=== PATIENT | female | born 1980 | race American Indian/Alaskan Native ===

== ENCOUNTER 2017-03-23 12:45 | Emergency (ER) | payer SELFPAY ==
[2017-03-23 12:55] VITALS: BP 123/80
[2017-03-23] MEDS ORDERED: MARCAINE 0.5% INFILTRATI ONE (13:05)
[2017-03-23] MEDS ORDERED: NACL 0.9% IR ONE ×2 (13:06→13:10)
[2017-03-23] MEDS ORDERED: MOTRIN PO ONE (13:06)
[2017-03-23] MEDS ORDERED: BOOSTRIX IM ONE (13:55)
--- NOTE | 2017-03-23 22:23 | Emergency Department Report ---
Entered by TAMERA MORRELL, acting as scribe for MANDY CAMPOS NP. - General Chief complaint: Skin/Abscess/Foreign Body Stated complaint: LUMP UNDER ARM Time Seen by Provider: 03/23/17 12:56 Source: patient Mode of arrival: Ambulatory Limitations: No Limitations - History of Present Illness Initial comments: This is a 36 y/o female that is non-toxic, non-ill appearing, and in no acute distress with no significant PMHx with c/o a gradually worsening right axillary abscess that began 1 week ago. Patient states the abscess began as a small bump the "size of a tic-tac" one year ago, and she was seen by her PCP who diagnosed it as folliculitis. Patient reports associated sharp, burning, 7/10 pain, but she denies fever, chills, pus, drainage, CP. SOB, stiff neck, headache, nausea, and vomiting. Aggravated with movement and alleviated with nothing. Not UTD with tetanus. NKDA. complaint: abscess/boil Onset/Timin -: week(s) Tetanus Up to Date: no Location: RUE (right axillary) Severity: moderate Severity scale (0 -10): 7 Quality: burning, stabbing Consistency: constant Improves with: none Worsens with: movement Context: other (Hx of folliculitis) Associated symptoms: denies other symptoms Treatments Prior to Arrival: none - Related Data Previous Rx's Medication Instructions Recorded Last Taken Type Cephalexin [Keflex] 500 mg PO Q8HR 5 Days 03/23/17 Unknown Rx traMADol [Ultram] 50 mg PO Q6HR PRN #8 tablet 03/23/17 Unknown Rx Allergies Allergy/AdvReac Type Severity Reaction Status Date / Time No Known Allergies Allergy Unverified 03/23/17 12:51 Abscess Boil HPI - HPI Chief Complaint: Skin/Abscess/Foreign Body Stated Complaint: LUMP UNDER ARM Time Seen by Provider: 03/23/17 12:56 Duration: 1 Week Location: Upper Extremity (right axillary) Severity: Moderate (7/10) History: Yes Pain (right axillary), No Fever, No Purulent Drainage, No Numbness , No Foreign Body, No Previous History, No Insect Bite Home Medications: Previous Rx's Medication Instructions Recorded Last Taken Type Cephalexin [Keflex] 500 mg PO Q8HR 5 Days 03/23/17 Unknown Rx traMADol [Ultram] 50 mg PO Q6HR PRN #8 tablet 03/23/17 Unknown Rx Allergies/Adverse Reactions: Allergies Allergy/AdvReac Type Severity Reaction Status Date / Time No Known Allergies Allergy Unverified 03/23/17 12:51 ED Review of Systems Comment: All other systems reviewed and negative Constitutional: denies: chills, fever, weakness Eyes: denies: eye pain, eye discharge, vision change ENT: denies: ear pain, throat pain Respiratory: denies: cough, orthopnea, shortness of breath, SOB with exertion, SOB at rest, stridor, wheezing Cardiovascular: denies: chest pain, palpitations, dyspnea on exertion, orthopnea , edema, syncope, paroxysmal nocturnal dyspnea Endocrine: no symptoms reported Gastrointestinal: denies: abdominal pain, nausea, vomiting Genitourinary: denies: urgency, dysuria, discharge Musculoskeletal: denies: back pain, joint swelling, arthralgia, myalgia Skin: other (right axillary abscess). denies: rash, lesions Neurological: denies: headache, weakness, numbness, paresthesias Psychiatric: denies: anxiety, depression Hematological/Lymphatic: denies: easy bleeding, easy bruising ED Past Medical Hx - Past Medical History Previous Medical History?: No - Surgical History Additional Surgical History: X 2 - Social History Smoking Status: Never Smoker Substance Use Type: Alcohol, Marijuana - Medications Home Medications: Home Medications Medication Instructions Recorded Confirmed Last Taken Type Cephalexin [Keflex] 500 mg PO Q8HR 5 Days 03/23/17 Unknown Rx traMADol [Ultram] 50 mg PO Q6HR PRN #8 tablet 03/23/17 Unknown Rx ED Physical Exam - General Limitations: No Limitations General appearance: alert, in no apparent distress - Head Head exam: Present: atraumatic, normocephalic - Eye Eye exam: Present: normal appearance, PERRL, EOMI Pupils: Present: normal accommodation - ENT ENT exam: Present: normal exam, normal orophraynx, mucous membranes moist, TM's normal bilaterally, normal external ear exam - Neck Neck exam: Present: normal inspection, full ROM. Absent: tenderness, meningismus, lymphadenopathy - Respiratory Respiratory exam: Present: normal lung sounds bilaterally. Absent: respiratory distress, wheezes, rales, rhonchi, stridor - Cardiovascular Cardiovascular Exam: Present: regular rate, normal rhythm, normal heart sounds. Absent: systolic murmur, diastolic murmur, rubs, gallop - GI/Abdominal GI/Abdominal exam: Present: soft, normal bowel sounds. Absent: distended, tenderness, guarding, rebound, rigid, diminished bowel sounds - Extremities Exam Extremities exam: Present: normal inspection, full ROM, normal capillary refill. Absent: tenderness, pedal edema, joint swelling, calf tenderness - Back Exam Back exam: Present: normal inspection, full ROM. Absent: tenderness, CVA tenderness (R), CVA tenderness (L), muscle spasm, paraspinal tenderness, vertebral tenderness - Neurological Exam Neurological exam: Present: alert, oriented X3, CN II-XII intact, normal gait, reflexes normal. Absent: motor sensory deficit - Psychiatric Psychiatric exam: Present: normal affect, normal mood - Skin Skin exam: Present: warm, dry, intact. Absent: rash - Expanded Skin Exam Expanded Type of lesion: Present: abscess (3 cm boil present to right axillary that is tender to touch with no pus or drainage. Positive fluctance.) ED Course Vital Signs 03/23/17 12:53 Temperature 98.1 F Pulse Rate 74 Respiratory 17 Rate Blood Pressure 123/80 O2 Sat by Pulse 99 Oximetry - Reevaluation(s) Reevaluation #1: 03/23/17 14:00 Patient is sitting down after I/D comfortably. no signs of distress noted./ - I & D Right Breast Type of Procedure: Complex Site: Axilla Blade Size: 11 I & D Procedure: betadine prep, sterile drapes applied, sterile dressing applied Progress: Under sterile procedure, I used Betadine to cleanse the area. I then used 4 x 4 to try and clean the area. I used 25-gauge 5/8 hypo-to inject 0.5% Marcaine with total volume of 6 mL. I then used Betadine again cleansed area. I then used an 11 blade to make a decision of 2 cm to the site. About 1 mL of purulent drainage noted. I then used a hemostat to break down the abscess. I used 0.9% saline to flush the area with a total cc of 20. I then used one fourth iodoform packing. A sterile 4 x 4 with tape has in place as dressing. Patient's are well with no acute signs of distress or complications noted. ED Medical Decision Making - Medical Decision Making Ed course: This is a 36-year-old female that presents with right axilla abscess 1- after my physical exam, pt recevied ibuprofen, tetanus. 2-incision drainage has been performed and a one fourth aforementioned place. Patient was instructed to keep the wound clean and dry for 48 hours. Patient was also instructed to return if 48 hours for packing removal and reassessment of the wound. 3- patient received Ultram at discharge and was struck and not operate heavy machinery while taking altered due to sedation/drowsiness. 4- patient also received Keflex at discharge. 5- patient was instructed to follow-up with her primary care doctor in 3-5 days or symptoms worsen such as fever, chills, joint pain, joint stiffness, joint swelling, stiff neck, headache, shortness of breath, chest pain, increased swelling with pus drainage return back to emergency room as was possible. 6- at time time of discharge, the patient does not seem toxic or ill in appearance. No acute signs of distress noted. Patient agrees to discharge treatment plan of care. No further questions noted by the patient. ED Disposition Clinical Impression: Abscess Disposition: DC-01 TO HOME OR SELFCARE Is pt being admited?: No Does the pt Need Aspirin: No Condition: Stable Instructions: Abscess (ED), Acute Wound Care (ED), Abscess Incision and Drainage (ED), Incision and Drainage (ED), Cephalexin (By mouth), Tramadol (By mouth) Additional Instructions: Return back to ER in 48 hours for packing removal and reassessment of your wound. follow-up with your primary care doctor in 3-5 days or symptoms worsen such as fever, chills, joint pain, joint stiffness, joint swelling, stiff neck, headache , shortness of breath, chest pain, increased swelling with pus drainage return back to emergency room as was possible. Take full course of antibodies as prescribed. Take Ultram as prescribed. Do not operate heavy machinery when taken Ultram due to sedation/drowsiness. Prescriptions: Cephalexin [Keflex] 500 mg PO Q8HR 5 Days traMADol [Ultram] 50 mg PO Q6HR PRN #8 tablet PRN Reason: Pain Referrals: KRYS MARTI MD [Primary Care Provider] - 3-5 Days CATRINA SIERRA JR, MD [Staff Physician] - 3-5 Days [facility] [Outside] - 3-5 Days [facility] [Outside] - 3-5 Days Forms: Work/School Release Form(ED) This documentation as recorded by the PORSCHE smith JASMINE,accurately reflects the service I personally performed and the decisions made by me,MANDY CAMPOS, [employer]EEPING [employer]ESS OPERATOR.
== END 2017-03-23 14:26 | disposition home or self-care (01) ==
LOC: ED 12:45
DX: L02.411 Cutaneous abscess of right axilla (principal); F12.10 Cannabis abuse, uncomplicated
CPT/HCPCS: 90471; 90715

== ENCOUNTER 2017-03-25 12:55 | Emergency (ER) | payer SELFPAY ==
[2017-03-25 13:27] VITALS: BP 130/87
--- NOTE | 2017-03-25 14:04 | Emergency Department Report ---
Suture/Staple Removal - HPI Chief Complaint: Laceration/Recheck/Suture Stated Complaint: WOUND CHECK Time Seen by Provider: 03/25/17 13:41 When Sutures or Vin Placed: I and D two days ago Wound Location: R axilla ED Review of Systems ROS: Stated complaint: WOUND CHECK Other details as noted in HPI Comment: All other systems reviewed and negative Constitutional: denies: chills, fever Gastrointestinal: other (tolerating antibiotics). denies: nausea, vomiting Musculoskeletal: other (pt states pain decreased ) Skin: other (foul smelling drainage from packing ). denies: change in color ED Past Medical Hx - Past Medical History Previous Medical History?: No - Surgical History Past Surgical History?: Yes Additional Surgical History: X 2 - Social History Smoking Status: Never Smoker Substance Use Type: Alcohol, Marijuana - Medications Home Medications: Home Medications Medication Instructions Recorded Confirmed Last Taken Type Cephalexin [Keflex] 500 mg PO Q8HR 5 Days 03/23/17 Unknown Rx traMADol [Ultram] 50 mg PO Q6HR PRN #8 tablet 03/23/17 Unknown Rx Mupirocin [Bactroban 2%] 1 applic TP TID 5 Days 03/25/17 Unknown Rx Suture Removal Exam - Exam General: Vital signs noted. No distress. Alert and acting appropriately. Wound: Yes Tenderness, No Pathologic Erythema, No Drainage, No Pus, No Wound Dehiscence Other Systems: All other systems reviewed and are unremarkable. R axilla with packing in place. no drainage noted. ED Course Vital Signs 03/25/17 13:23 Temperature 98.5 F Pulse Rate 73 Respiratory 18 Rate Blood Pressure 130/87 O2 Sat by Pulse 100 Oximetry - Reevaluation(s) Reevaluation #1: 03/25/17 14:00 packing removed. site flushed with normal saline. no drainage. verbal dc instructions given to the pt. pt has no questions at this time. - Pulse Oximetry Interpretation Digit-Finger Initial Pulse Oximetry Readin Actions Taken: none ED Recheck MDM - Differential Diagnosis Wound Recheck, Cutananeous Abscess reche Critical Care Time: No Critical care attestation.: If time is entered above; I have spent that time in minutes in the direct care of this critically ill patient, excluding procedure time. ED Disposition Clinical Impression: Abscess packing removal Disposition: DC-01 TO HOME OR SELFCARE Is pt being admited?: No Does the pt Need Aspirin: No Condition: Stable Instructions: Methicillin Resistant Staphylococcus Aureus (ED), Abscess (ED) Additional Instructions: Warm compresses at least 4 times a day to your R underarm No shaving at this time Throw out all your razors When you do shave (after site heals completely) , use an electric clipper Wash with OTC Hibiclens Prescriptions: Mupirocin [Bactroban 2%] 1 applic TP TID 5 Days Referrals: PRIMARY CARE, [Primary Care Provider] - 3-5 Days Time of Disposition: 14:04
== END 2017-03-25 14:10 | disposition home or self-care (01) ==
LOC: ED 12:55
DX: Z48.00 Encounter for change or removal of nonsurgical wound dressing (principal); F12.90 Cannabis use, unspecified, uncomplicated